=== PATIENT | female | born 1960 ===

== ENCOUNTER 2018-01-15 12:29 | Outpatient (CLI) | payer OTHER | END 2018-01-15 12:33 | disposition home or self-care (01) | LOC: LAB 12:29 | DX: N95.1 Menopausal and female climacteric states (principal) ==

== ENCOUNTER 2019-05-01 07:58 | Outpatient (CLI) | payer OTHER | END 2019-05-01 08:01 | disposition home or self-care (01) | LOC: MAMO-SONO 07:58 | DX: N60.11 Diffuse cystic mastopathy of right breast (principal); N60.12 Diffuse cystic mastopathy of left breast; Z12.31 Encounter for screening mammogram for malignant neoplasm of breast; Z87.898 Personal history of other specified conditions ==

== ENCOUNTER 2019-05-01 10:22 | Outpatient (CLI) | payer OTHER | END 2019-05-01 10:38 | disposition home or self-care (01) | LOC: NUCLEAR 10:22 | DX: M81.0 Age-related osteoporosis without current pathological fracture (principal) ==